=== PATIENT | female | born 1945 | race Caucasian/White ===

== ENCOUNTER 2017-09-22 12:32 | Outpatient (CLI) | payer MEDICARE | END 2017-09-22 12:33 | LOC: LAB 12:32 | PROVIDERS: ATTEND Family Medicine | DX: E03.9 Hypothyroidism, unspecified (principal) | CPT/HCPCS: 36415; 84443 ==

== ENCOUNTER 2019-01-27 15:53 | Outpatient (CLI) | payer MEDICARE | END 2019-01-27 15:55 | LOC: LAB 15:53 | PROVIDERS: ATTEND Family Medicine | DX: E03.9 Hypothyroidism, unspecified (principal) | CPT/HCPCS: 36415; 84443 ==

== ENCOUNTER 2019-09-22 10:08 | Outpatient (CLI) | payer MEDICARE ==
[2019-09-22 10:37] LABS: BASOPHILS % 0.4 % (0.0-1.5); NEUTROPHILS # 6.6 # k/uL (1.4-7.7)
[2019-09-22 11:35] LABS: eGFR (Non-African) > 60
== END 2019-09-22 10:13 ==
LOC: LAB 10:08
PROVIDERS: ATTEND Family Medicine
DX: Z51.81 Encounter for therapeutic drug level monitoring (principal); E03.9 Hypothyroidism, unspecified; Z79.899 Other long term (current) drug therapy
CPT/HCPCS: 36415; 80053; 84443; 85025